=== PATIENT | male | born 1950 | race Caucasian/White ===

== ENCOUNTER → 2019-04-25 | Outpatient (CLI) | payer MEDICARE, OTHER ==
--- NOTE | 2019-04-25 15:49 | Diagnostic Imaging Report ---
Thyroid ultrasound CPT code: 02178 History: Hypothyroidism Comparison: None Findings: The thyroid echotexture is normal. Vascularity is normal. The right lobe measures 4.8 x 1.5 x 1.7 cm. The left lobe measures 4.0 x 1.4 x 2.0 cm. The isthmus measures 0.3 cm. Nodules (measurements are AP, transverse, craniocaudal): Right Lobe: Lower pole hypoechoic, circumscribed, wider than tall, solid nodule measures 7 x 5 x 6 mm without associated vascularity or calcifications. Left Lobe: No cystic mass or discrete solid nodule identified. Isthmus: No cystic mass or discrete solid nodule identified. Lymph Nodes: No cervical lymph nodes are identified. Parathyroids: Not visualized. IMPRESSION: Right lower pole 7 mm thyroid nodule (TR4). Recommend interval ultrasound follow-up per ACR guidelines. ACR glossary of thyroid rads TI-RADS 1: No focal lesion. TI-RADS 2: Not suspicious. TI-RADS 3: Mildly suspicious (recommend FNA is greater than or equal to 2.5 cm; follow-up at 1, 3, and 5 years if greater than or equal to 1.5 cm) TI-RADS 4: Moderately Suspicious (recommend FNA is greater than or equal to 1.5 cm; follow-up at 1, 2, 3, and 5 years) TI-RADS 5: Highly suspicious (recommend FNA is greater than or equal to 10 mm) TI-RADS 6: Biopsy-proven malignancy Signed by: Choco Polk MD on 04/25/2019 3:46 PM
--- NOTE | 2019-04-26 | Diagnostic Imaging Report ---
EXAMINATION: MRI of the lumbar spine without contrast HISTORY: Chronic low back pain. COMPARISON: None. TECHNIQUE: Sagittal T1, T2, STIR; axial T2 and proton density. FINDINGS: It is assumed that there are 5 lumbar vertebrae. Curvature/Alignment: Normal lordosis. Vertebrae: No evidence of recent fracture, infection, or neoplasm. Conus: Normal, terminating at L2 Cauda equina: Unremarkable. Lower thoracic: Unremarkable. Paraspinal soft tissues: Unremarkable. Degenerative changes: L1-L2: Mild symmetric disc bulge. No canal or foraminal stenoses. L2-L3: Minimal symmetric disc bulge. No spinal canal or foraminal stenosis. L3-L4: Mild facet arthrosis and minimal symmetric disc bulge. No spinal canal or foraminal stenosis. L4-L5: Mild symmetric disc bulge and moderate facet arthrosis mainly on the right side. Minimal degenerative anterolisthesis. No significant spinal canal or foraminal stenoses. L5-S1: Mild symmetric disc bulge with a small posterior annular fissure, mild bilateral facet arthrosis. No significant spinal canal or foraminal stenosis. IMPRESSION: 1. Minimal degenerative anterolisthesis of L4 on L5 due to moderately facet arthrosis. 2. Mild degenerative changes in the remaining levels without spinal canal or neural foraminal stenoses. No evidence of nerve root compression. Signed by: Dr. Koki Lorenzo M.D. on 04/25/2019 11:57 PM
== END ==
LOC: MRI 13:12
PROVIDERS: ATTEND Family Medicine
DX: M54.5 Low back pain (principal); E03.9 Hypothyroidism, unspecified
CPT/HCPCS: 72148; 76536

== ENCOUNTER 2023-10-02 18:43 | Emergency (ER) | payer MEDICARE ==
[~2023-10-02] VITALS: Ht 172.7 cm; Wt 73.9 kg
[~2023-10-02 18:43] MED LIST: ARICEPT5 MG PO; ASPIRIN325 MG PO; AUGMENTIN 875 MG PO; AVODART0.5 MG PO; CARBIDOPA-LEVO1 EACH PO; CLONAZEPAM1 MG PO; CYMBALTA20 MG PO; FLOMAX0.4 MG PO; FLUDROCORTISON0.1 MG PO; GEMTESA75 MG PO; HYDROCODON-ACE1 EAC9 PO; LEXAPRO20 MG PO; LYRICA25 MG PO; MELATONIN5 M6 PO; METFORMIN HCL500 MG PO; NAMENDA10 MG PO; NUEDEXTA 20-101 EACH PO; PROTONIX20 MG PO; SIMVASTATIN40 MG PO; SINEMET 25-1001 EACH PO; SYNTHROID75 MCG PO; TIZANIDINE HCL4 M1 PO; VITAMIN B121000 MCG PO; vitamin b1 PO; vitamin d3 PO
[2023-10-02 19:35] VITALS: PULSE 62; RESP 18; TEMP 97.9
[2023-10-02 21:49] VITALS: BP 118/69; PULSE 70; RESP 20; TEMP 97.9
[2023-10-02] MEDS: TRAMADOL HCL 50 MG TAB PO ONE (21:53)
== END 2023-10-02 21:42 | disposition home or self-care (01) ==
LOC: FSED 19:17
DX: S00.03XA Contusion of scalp, initial encounter (principal); M25.512 Pain in left shoulder; W01.0XXA Fall on same level from slipping, tripping and stumbling without subsequent striking against object, initial encounter; Y93.01 Activity, walking, marching and hiking; Y92.89 Other specified places as the place of occurrence of the external cause; E11.9 Type 2 diabetes mellitus without complications; G20.A1 Parkinson's disease without dyskinesia, without mention of fluctuations; G30.9 Alzheimer's disease, unspecified; F02.80 Dementia in other diseases classified elsewhere, unspecified severity, without behavioral disturbance, psychotic disturbance, mood disturbance, and anxiety
CPT/HCPCS: 70450; 72125; 99284